=== PATIENT | female | born 1980 | race American Indian/Alaskan Native ===

== ENCOUNTER 2018-12-16 14:06 | Emergency (ER) | payer OTHER ==
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
[2018-12-16] MEDS ORDERED: IBUPROFEN PO STA (14:50)
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
--- NOTE | 2018-12-16 16:32 | XRay Report ---
PROCEDURE: XR SPINE CERVICAL 3 VIEW TECHNIQUE: AP, lateral and odontoid views were obtained. HISTORY: neck pain COMPARISONS: None FINDINGS: No fracture or subluxation is seen. The prevertebral soft tissues appear normal. Posterior elements a re intact. Bone density appears normal. Disc spaces are well maintained and appear normal. IMPRESSION: Negative exam.. This document is electronically signed by Jitendra Robbins MD., Dec 16 2018 04:30:41 PM ET
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
[2018-12-16 16:55] VITALS: BP 120/64
== END 2018-12-16 16:53 | disposition home or self-care (01) ==
LOC: ED 14:06
DX: S16.1XXA Strain of muscle, fascia and tendon at neck level, initial encounter (principal); S39.012A Strain of muscle, fascia and tendon of lower back, initial encounter; V89.2XXA Person injured in unspecified motor-vehicle accident, traffic, initial encounter; Y93.89 Activity, other specified; Y92.488 Other paved roadways as the place of occurrence of the external cause; Y99.8 Other external cause status
CPT/HCPCS: 72040; 72100; 99284